=== PATIENT | female | born 1980 | race Caucasian/White ===

== ENCOUNTER 2016-12-09 10:43 | Emergency (ER) | payer BC ==
[2016-12-09] MEDS ORDERED: HYDROmorphone 1 MG/ML 1 ML SYRINGE IVP STA ×3 (11:00→16:35)
[2016-12-09] MEDS ORDERED: ONDANSETRON 4 MG/2 ML VIAL IVP STA ×2 (11:00→14:59)
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
--- NOTE | 2016-12-09 12:38 | XR ---
EXAMINATION TYPE: XR ankle complete RT , 3 VIEWS DATE OF EXAM ORDERED: 12/09/2016 HISTORY: Pain. COMPARISON: None. FINDINGS: There appears to be disruption of the talocalcaneal joint. I suspect that this is chronic. No definite acute fracture is seen. There is moderate soft tissue swelling medially. No definite ank le joint effusion is seen. There is a small Achilles spur. IMPRESSION: DISRUPTION OF THE TALOCALCANEAL JOINT. I SUSPECT THIS IS CHRONIC. PLEASE CORRELATE CLINICALLY.
--- NOTE | 2016-12-09 12:39 | XR ---
EXAMINATION TYPE: XR tibia fibula RT , 2 VIEWS DATE OF EXAM ORDERED: 12/09/2016 HISTORY: Pain. COMPARISON: None. FINDINGS: No fracture or dislocation is seen. No knee joint effusion is seen. There is evidence of o steoarthritis within the knee joint. IMPRESSION: NO ACUTE OSSEOUS LESION.
[2016-12-09 12:41] VITALS: TEMP 97.9
--- NOTE | 2016-12-09 12:43 | XR ---
EXAMINATION TYPE: XR foot limited RT , 2 VIEWS DATE OF EXAM ORDERED: 12/09/2016 HISTORY: Pain. COMPARISON: None. FINDINGS: There is a disruption of the forefoot with disruption of the tail of calcaneal joint as we ll as the talonavicular joint. There is associated soft tissue swelling.. There is a fracture through the base of the fifth metatarsal which is nondisplaced. A definite Lisfranc injury is not visualized . IMPRESSION: 1. DISRUPTION OF THE TALONAVICULAR JOINT. 2. DISRUPTION OF THE TALOCALCANEAL JOINT. 3. UNDISPLACED FRACTURE OF THE BASE OF THE FIFTH METATARSAL.
--- NOTE | 2016-12-09 12:47 | XR ---
EXAMINATION TYPE: XR wrist complete LT , 4 VIEWS DATE OF EXAM ORDERED: 12/09/2016 HISTORY: Pain. COMPARISON: None. FINDINGS: There is a cholecystitis type fracture of the distal left radius and ulna. There is minima l displacement and mild posterior angulation. IMPRESSION: CONUS TYPE FRACTURE OF THE DISTAL RADIUS AND ULNA. CODE A: INITIAL ASSESSMENT FOR CLOSED FRACTURE.
--- NOTE | 2016-12-09 12:48 | XR ---
EXAMINATION TYPE: XR forearm LT , 2 VIEWS DATE OF EXAM ORDERED: 12/09/2016 HISTORY: Pain. COMPARISON: None. FINDINGS: Once again, a fracture of the distal radius and ulna are again identified. No other long b one fracture is seen. IMPRESSION: CHOLECYSTITIS FRACTURE OF THE DISTAL LEFT RADIUS AND ULNA. CODE A: INITIAL ASSESSMENT FOR CLOSED FRACTURE
[2016-12-09] MEDS ORDERED: ETOMIDATE 2 MG/ML 10 ML VIAL IVP STA (13:03)
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
[2016-12-09 15:38] VITALS: RESP 20
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
[2016-12-09 17:43] VITALS: BP 155/65; PULSE 85
== END 2016-12-09 18:00 | disposition short-term general hospital (02) ==
LOC: EC 10:43
DX: S82.891A Other fracture of right lower leg, initial encounter for closed fracture (principal); S52.502A Unspecified fracture of the lower end of left radius, initial encounter for closed fracture; F17.200 Nicotine dependence, unspecified, uncomplicated; Z88.6 Allergy status to analgesic agent; Z79.899 Other long term (current) drug therapy; V43.62XA Car passenger injured in collision with other type car in traffic accident, initial encounter; Y92.410 Unspecified street and highway as the place of occurrence of the external cause
CPT/HCPCS: 99285 ×2; 27810 ×2; 99152 ×2; 99153 ×2; 29125 ×2; 96374 ×2; 96376 ×2; 96375 ×2; 73090; 73110; 73590; 73600; 73610; 73620; 73700; L4350; J2405; J1170

== ENCOUNTER 2020-09-18 00:32 | Emergency (ER) | payer OTHER ==
[2020-09-18 00:53] VITALS: BP 163/84; PULSE 71; RESP 20; TEMP 98.2
[2020-09-18] MEDS ORDERED: ORPHENADRINE 30 MG/ML 2 ML VIAL IM STA (01:05)
--- NOTE | 2020-09-18 01:07 | ED ---
Back Pain HPI - General Chief Complaint: Back Pain/Injury Stated Complaint: Back & Side Pain Time Seen by Provider: 09/18/20 00:56 Source: patient Limitations: no limitations - History of Present Illness MD Complaint: back pain, back injury Onset/Timin -: week(s) Similar Symptoms Previously: No Place: home Radiation: right leg Severity: severe Quality: burning, aching Consistency: constant Improves With: none Worsens With: movement Context: fall Associated Symptoms: denies other symptoms Treatments Prior to Arrival: NSAIDS - Related Data Home Medications Medication Instructions Recorded Confirmed Ibuprofen [Motrin] 800 mg PO TID PRN 12/09/16 12/09/16 Menthol [Icy Hot] 1 patch TRANSDERM DAILY PRN 12/09/16 12/09/16 Multivitamins, Thera [Multivitamin 1 tab PO DAILY 12/09/16 12/09/16 (formulary)] Previous Rx's Medication Instructions Recorded Methocarbamol [Robaxin-750] 750 mg PO TID PRN #30 tablet 09/18/20 predniSONE 60 mg PO DAILY #30 tab 09/18/20 Allergies Allergy/AdvReac Type Severity Reaction Status Date / Time acetaminophen AdvReac Unknown Verified 09/18/20 00:53 Review of Systems ROS Statement: Those systems with pertinent positive or pertinent negative responses have been documented in the HPI. ROS Other: All systems not noted in ROS Statement are negative. Constitutional: Denies: fever, chills, weakness Respiratory: Denies: cough, dyspnea Cardiovascular: Denies: chest pain, edema Gastrointestinal: Denies: abdominal pain, vomiting, diarrhea Genitourinary: Denies: dysuria, frequency, hematuria Musculoskeletal: Reports: as per HPI, back pain Skin: Denies: rash, lesions Neurological: Denies: headache, weakness, numbness, paresthesias Past Medical History Past Medical History: Liver Disease Additional Past Medical History / Comment(s): PCOS History of Any Multi-Drug Resistant Organisms: None Reported Past Surgical History: Orthopedic Surgery Additional Past Surgical History / Comment(s): rt foot,lt hand Past Anesthesia/Blood Transfusion Reactions: No Reported Reaction Past Psychological History: No Psychological Hx Reported Smoking Status: Never smoker Past Alcohol Use History: Occasional Past Drug Use History: None Reported General Exam Limitations: no limitations Course Vital Signs 09/18/20 00:50 Temperature 98.2 F Pulse Rate 71 Respiratory 20 Rate Blood Pressure 163/84 O2 Sat by Pulse 99 Oximetry Disposition Clinical Impression: Lumbar radiculopathy Disposition: HOME SELF-CARE Condition: Good Instructions (If sedation given, give patient instructions): Lumbar Radiculopathy (ED) Prescriptions: predniSONE 60 mg PO DAILY #30 tab Methocarbamol [Robaxin-750] 750 mg PO TID PRN #30 tablet PRN Reason: pain Is patient prescribed a controlled substance at d/c from ED?: No Referrals: Zabrina Salcido DO [Primary Care Provider] - 1-2 days
--- NOTE | 2020-09-18 02:03 | CT ---
EXAMINATION TYPE: CT lumbar spine wo con DATE OF EXAM: 09/18/2020 COMPARISON: None HISTORY: Fall with lower back pain. CT DLP: 2504.4 mGycm Automated exposure control for dose reduction was used. Images obtained from the level of T11 to the S to vertebra with no contrast. Lumbar vertebra have normal alignment. Disc spaces are fairly normal. There is no compression fractur e. Posterior elements are intact. Facet joints are intact. There is some mild anterior spurring at L5 -S1. There is no lumbar paraspinal mass. The sacroiliac joints are intact. I see no focal bone destru ction. IMPRESSION: Negative CT scan of the lumbar spine. No evidence of traumatic injury. No fracture.
[2020-09-18] MEDS ORDERED: MORPHINE SULFATE 4 MG/ML SYRINGE IM STA (02:19)
[2020-09-18] MEDS ORDERED: predniSONE 20 MG TAB PO STA (02:21)
== END 2020-09-18 02:57 | disposition home or self-care (01) ==
LOC: SUPCPDRO 00:32 → EC 00:32
DX: M54.16 Radiculopathy, lumbar region (principal)
CPT/HCPCS: 72131; 99283; 96372 ×2; J2270; J2360; J7512

== ENCOUNTER → 2021-12-05 | Outpatient (CLI) | payer OTHER ==
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
== END | disposition home or self-care (01) ==
LOC: RADXRMAIN 10:31
PROVIDERS: ATTEND Family Medicine
DX: M19.071 Primary osteoarthritis, right ankle and foot (principal); M85.871 Other specified disorders of bone density and structure, right ankle and foot

== ENCOUNTER 2022-01-05 09:26 | Emergency (ER) | payer OTHER ==
[2022-01-05 09:35] VITALS: BP 178/82; PULSE 95; RESP 20; TEMP 98.4
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
== END 2022-01-05 10:24 | disposition home or self-care (01) ==
LOC: EC 09:26
DX: K02.9 Dental caries, unspecified (principal); J45.909 Unspecified asthma, uncomplicated; F41.9 Anxiety disorder, unspecified; Z88.6 Allergy status to analgesic agent; Z79.899 Other long term (current) drug therapy
CPT/HCPCS: 99282

== ENCOUNTER → 2023-11-28 | Outpatient (CLI) | payer OTHER ==
[2023-11-28 19:42] LABS: Basophils # (A) 0.02 X 10*3/uL (0.00-0.10); Basophils % (A) 0.4 %; Eosinophils # (A) 0.14 X 10*3/uL (0.04-0.35); Eosinophils % (A) 2.5 %; HCT 39.9 % (37.2-46.3); HGB 13.2 g/dL (12.0-15.0); Lymphocytes # (A) 2.04 X 10*3/uL (0.90-5.00); Lymphocytes % (A) 35.8 %; MCH 29.3 pg (27.0-32.0); MCHC 33.1 g/dL (32.0-37.0); MCV 88.5 FL (80.0-97.0); Mean Platelet Volume 11.7 FL (9.5-12.2); Monocytes # (A) 0.46 X 10*3/uL (0.20-1.00); Monocytes % (A) 8.1 %; NRBC Per 100 WBC 0 X 10*3/uL (0.00-0.01); Neutrophils # (A) 3.02 X 10*3/uL (1.80-7.70); Neutrophils % (A) 52.8 %; Platelet Count 297 X 10*3/uL (140-440); RBC 4.51 X 10*6/uL (4.10-5.20)
[2023-11-28 19:54] LABS: Erythrocyte Sedimentation Rate 11 mm/Hr (0-20)
[2023-11-28 23:38] LABS: ALT 62 U/L (8-44); AST 50 U/L (13-35); Albumin 4.5 g/dL (3.8-4.9); Albumin/Globulin Ratio 1.88 Ratio (1.60-3.17); Alkaline Phosphatase 68 U/L (41-126); BUN/Creat Ratio 14.57 Ratio (12.00-20.00); Blood Urea Nitrogen 10.2 mg/dL (9.0-27.0); Calcium 9.2 mg/dL (8.7-10.3); Carbon Dioxide 20.6 mmol/L (21.6-31.8); Chloride 106 mmol/L (96-109); Chol/HDL Ratio 4.34 Ratio; Globulin 2.4 g/dL (1.6-3.3); Glucose 104 mg/dL (70-110); Iron 58 UG/DL (50-170); LDL Cholesterol,Calculated 112.4 mg/dL (0.0-131.0); Potassium 4.2 mmol/L (3.5-5.5); Rheumatoid Factor, Qnt 27 IU/mL (0-15); Sodium 138 mmol/L (135-145); T4, Free (Free Thyroxine) 0.98 ng/dL (0.80-1.80); Total Bilirubin 0.4 mg/dL (0.3-1.2); Total Protein 6.9 g/dL (6.2-8.2); Uric Acid 5.6 mg/dL (2.9-7.7)
[2023-12-06 11:00] LABS: ANA Pattern Speckled
== END | disposition home or self-care (01) ==
LOC: LABWHC1 13:23
PROVIDERS: ATTEND Family Medicine
DX: Z00.00 Encounter for general adult medical examination without abnormal findings (principal); Z13.89 Encounter for screening for other disorder; M25.571 Pain in right ankle and joints of right foot; R20.2 Paresthesia of skin; R53.83 Other fatigue
CPT/HCPCS: 36415; 80053; 80061; 82306; 82607; 82746; 83036; 83540; 84436; 84439; 84443; 84550; 85025; 85652; 86038; 86039; 86431

== ENCOUNTER 2024-04-22 21:10 | Emergency (ER) | payer OTHER ==
[2024-04-22 21:21] VITALS: BP 166/112; PULSE 79; RESP 18; TEMP 97.8
[2024-04-22 22:46] LABS: Appearance,Urine Turbid (Clear); Bacteria,Urine Moderate /hpf; Bilirubin,Urine Negative (Negative); Blood,Urine Large (Negative); Color,Urine Yellow; Glucose,Urine (UA) Negative (Negative); Ketones,Urine Negative (Negative); Leukocyte Esterase,Urine Large (Negative); Mucus,Urine Few /hpf; Nitrite,Urine Negative (Negative); Protein,Urine 1+ (Negative); RBC,Urine 92 /hpf (0-5); Specific Gravity,Urine 1.024 (1.001-1.035); Squamous Epithelial Cell,Urine 19 /hpf (0-4); Urobilinogen,Urine <2.0 mg/dL (<2.0); WBC,Urine >182 /hpf (0-5)
== END 2024-04-22 22:49 | disposition left against medical advice (07) ==
LOC: EC 21:10
DX: R10.9 Unspecified abdominal pain (principal); Z53.21 Procedure and treatment not carried out due to patient leaving prior to being seen by health care provider
CPT/HCPCS: 81001; 81025; 87086; 99499

== ENCOUNTER 2024-08-05 14:44 | Emergency (ER) | payer BC ==
[2024-08-05 16:03] LABS: Basophils # (A) 0.02 10*3/uL (0.00-0.10); Basophils % (A) 0.3 %; Eosinophils # (A) 0.21 10*3/uL (0.04-0.35); Eosinophils % (A) 3.1 %; HCT 38.9 % (37.2-46.3); HGB 13.1 g/dL (12.0-15.0); Lymphocytes # (A) 2.25 10*3/uL (0.90-5.00); Lymphocytes % (A) 33.6 %; MCH 29.4 pg (27.0-32.0); MCHC 33.7 g/dL (32.0-37.0); MCV 87.2 fL (80.0-97.0); Mean Platelet Volume 11.2 fL (9.5-12.2); Monocytes # (A) 0.59 10*3/uL (0.20-1.00); Monocytes % (A) 8.8 %; Neutrophils % (A) 53.9 %; Platelet Count 282 10*3/uL (140-440); RBC 4.46 10*6/uL (4.10-5.20); RDW 12.9 % (11.5-14.5); WBC 6.69 10*3/uL (4.50-10.00)
[2024-08-05] MEDS: ONDANSETRON 4 MG/2 ML VIAL IVP STA (16:05)
[2024-08-05] MEDS: KETOROLAC 15 MG/ML 1 ML VIAL IVP STA (16:05)
[2024-08-05] MEDS: SODIUM CHLORIDE 0.9% 1,000 ML IV ONE (16:06)
[2024-08-05 16:15] LABS: ALT 74 U/L (4-34); AST 51 U/L (14-36); African American GFR (CKD) >90 (>60 ml/min/1.73 sqM); Albumin 4.4 g/dL (3.5-5.0); Alkaline Phosphatase 74 U/L (38-126); Amylase 36 U/L (30-110); Anion Gap 8 mmol/L; Blood Urea Nitrogen 10 mg/dL (7-17); Calcium 9.3 mg/dL (8.4-10.2); Carbon Dioxide 27 mmol/L (22-30); Chloride 103 mmol/L (98-107); Glucose 112 mg/dL (74-99); Lipase 70 U/L (23-300); Non-African American GFR(CKD) >90 (>60 ml/min/1.73 sqM); Potassium 3.9 mmol/L (3.5-5.1); Sodium 138 mmol/L (137-145); Total Bilirubin 0.7 mg/dL (0.2-1.3)
--- NOTE | 2024-08-05 16:34 | ED ---
Abdominal Pain HPI - General Chief Complaint: Abdominal Pain Stated Complaint: Urogenital,L sided abd pain Source: patient, RN notes reviewed, old records reviewed Mode of arrival: ambulatory Limitations: no limitations - History of Present Illness Initial Comments: This is a 44-year-old female to the ER for evaluation today. Patient presents to the ER today for evaluation regards to abdominal pain left side abdominal pain left-sided flank pain left epigastric abdominal pain and left lower quadrant abdominal pain. Patient has had symptoms for months. Patient has no travel history or sick contacts. No fevers no nausea no vomiting no diarrhea. No history of colonoscopy recent ultrasound of gallbladder is negative MD Complaint: abdominal pain -: days(s) Location: diffuse, LLQ, L flank Radiation: LUQ, LLQ, L flank Migration to: LUQ, LLQ Severity: moderate Severity scale (1-10): 4 Quality: aching Consistency: intermittent Improves With: nothing Worsens With: nothing Associated Symptoms: denies other symptoms, other Treatments Prior to Arrival: other - Related Data Home Medications Medication Instructions Recorded Confirmed Ibuprofen [Motrin] 800 mg PO TID PRN 12/09/16 12/09/16 Menthol [Icy Hot] 1 patch TRANSDERM DAILY PRN 12/09/16 12/09/16 Multivitamins, Thera [Multivitamin 1 tab PO DAILY 12/09/16 12/09/16 (formulary)] Previous Rx's Medication Instructions Recorded methocarbamoL [Robaxin-750] 750 mg PO TID PRN #30 tablet 09/18/20 predniSONE 60 mg PO DAILY #30 tab 09/18/20 clindamycin HCL 300 mg PO QID #40 cap 01/05/22 traMADol HCl [Ultram] 50 mg PO Q6H PRN #12 tab 01/05/22 Allergies Allergy/AdvReac Type Severity Reaction Status Date / Time acetaminophen AdvReac Unknown Verified 08/05/24 14:49 Review of Systems ROS Statement: Those systems with pertinent positive or pertinent negative responses have been documented in the HPI. ROS Other: All systems not noted in ROS Statement are negative. Past Medical History Past Medical History: Asthma, Liver Disease Additional Past Medical History / Comment(s): PCOS History of Any Multi-Drug Resistant Organisms: None Reported Past Surgical History: Orthopedic Surgery Additional Past Surgical History / Comment(s): rt foot,lt hand Past Anesthesia/Blood Transfusion Reactions: No Reported Reaction Past Psychological History: Anxiety, Depression Smoking Status: Never smoker Past Alcohol Use History: Occasional Past Drug Use History: None Reported General Exam Limitations: no limitations General appearance: alert, in no apparent distress, obese Head exam: Present: atraumatic, normocephalic, normal inspection Eye exam: Present: normal appearance, PERRL, EOMI. Absent: scleral icterus, conjunctival injection, periorbital swelling ENT exam: Present: normal exam, mucous membranes moist Neck exam: Present: normal inspection. Absent: tenderness, meningismus, lymphadenopathy Respiratory exam: Present: normal lung sounds bilaterally. Absent: respiratory distress, wheezes, rales, rhonchi, stridor Cardiovascular Exam: Present: regular rate, normal rhythm, normal heart sounds. Absent: systolic murmur, diastolic murmur, rubs, gallop, clicks GI/Abdominal exam: Present: soft, normal bowel sounds. Absent: distended, tenderness, guarding, rebound, rigid Extremities exam: Present: normal inspection, full ROM, normal capillary refill. Absent: tenderness, pedal edema, joint swelling, calf tenderness Back exam: Present: normal inspection Neurological exam: Present: alert, oriented X3, CN II-XII intact Psychiatric exam: Present: normal affect, normal mood Skin exam: Present: warm, dry, intact, normal color. Absent: rash Course Vital Signs 08/05/24 08/05/24 08/05/24 14:45 16:56 18:43 Temperature 97.7 F 98.5 F Pulse Rate 92 78 75 Respiratory 16 18 18 Rate Blood Pressure 156/90 132/79 113/67 O2 Sat by Pulse 98 99 99 Oximetry - Reevaluation(s) Reevaluation #1: 08/05/24 16:33 Medical record is reviewed Reevaluation #2: 08/05/24 17:34 Patient's symptoms improved here in the ER Reevaluation #3: 08/05/24 17:34 Patient informed of results and questions answered Reevaluation #4: Was pt. sent in by a medical professional or institution (, PA, CREDIT ADJUSTER, urgent care, hospital, or [facility]...) When possible be specific @ -no Did you speak to anyone other than the patient for history (EMS, parent, family, police, friend...)? What history was obtained from this source @ -no Did you review nursing and triage notes (agree or disagree)? Why? @ -agree Are old charts reviewed (outside hosp., previous admission, EMS record, old EKG, old radiological studies, urgent care reports/EKG's, [facility] records)? Report findings @ -yes Differential Diagnosis (chest pain, altered mental status, abdominal pain women, abdominal pain men, vaginal bleeding, weakness, fever, dyspnea, syncope, headache, dizziness, GI bleed, back pain, seizure, CVA, palpatations, mental health, musculoskeletal)? @ -prior EKG interpreted by me (3pts min.). @ -no X-rays interpreted by me (1pt min.). @ -no CT interpreted by me (1pt min.). @ -yes negative for acute disease U/S interpreted by me (1pt. min.). @ -no What testing was considered but not performed or refused? (CT, X-rays, U/S, labs)? Why? @ -none What meds were considered but not given or refused? Why? @ -none Did you discuss the management of the patient with other professionals (professionals i.e. , PA, CREDIT ADJUSTER, lab, RT, psych nurse, aids social worker, personnel representative, teacher, air crew officer, case management director)? Give summary @ -no Was smoking cessation discussed for >3mins.? @ -no Was critical care preformed (if so, how long)? @ -no Were there social determinants of health that impacted care today? How? (Homeles sness, low income, unemployed, alcoholism, drug addiction, transportation, low edu. Level, literacy, decrease access to med. care, skilled nursing, rehab)? @ -none Was there de-escalation of care discussed even if they declined (Discuss DNR or withdrawal of care, Hospice)? DNR status @ -no What co-morbidities impacted this encounter? (DM, HTN, Smoking, COPD, CAD, Cancer, CVA, ARF, Chemo, Hep., AIDS, mental health diagnosis, sleep apnea, morbid obesity)? @ -none Was patient admitted / discharged? Hospital course, mention meds given and route, prescriptions, significant lab abnormalities, going to OR and other pertinent info. @ - 44 female to the ER for evaluation abdominal pain acute on chronic abdo joaquin pain pain for a month or some sort, patient will follow-up with GI and can be discharged home Discharge Undiagnosed new problem with uncertain prognosis? @ -no Drug Therapy requiring intensive monitoring for toxicity (Heparin, Nitro, Insulin, Cardizem)? @ -no Were any procedures done? @ -no Diagnosis/symptom? @ -Acute on chronic abdominal pain Acute, or Chronic, or Acute on Chronic? @ -Acute Uncomplicated (without systemic symptoms) or Complicated (systemic symptoms)? @ -Complicated Side effects of treatment? @ -no Exacerbation, Progression, or Severe Exacerbation? @ -exacerbation Poses a threat to life or bodily function? How? (Chest pain, USA, CA, pneumonia, PE, COPD, DKA, ARF, appy, cholecystitis, CVA, Diverticulitis, Homicidal, Suicidal, threat to staff... and all critical care pts) @ -no Reevaluation #5: Differential Abdominal Pain Women: Appendicitis, Cholecystitis, diverticulosis, ischemic bowel, pancreatitis, hepatitis, UTI, gastroenteritis, AAA, incarcerated hernia, bowel obstruction, constipation, inflammatory bowel, hepatitis, peptic ulcer disease, splenic infarction, perforated viscus, vulvitis, ovarian torsion, PID, kidney stone, placenta abruption, this is not meant to be an all-inclusive list Medical Decision Making - Medical Decision Making 44 female to the ER for evaluation abdominal pain acute on chronic abdominal pain pain for a month or some sort, patient will follow-up with GI and can be discharged home - Lab Data Result diagrams: 08/05/24 15:27 08/05/24 15:27 Lab Results 08/05/24 08/05/24 08/05/24 Range/Units 15:27 15:27 15:27 WBC 6.69 (4.50-10.00) 10*3/uL RBC 4.46 (4.10-5.20) 10*6/uL Hgb 13.1 (12.0-15.0) g/dL Hct 38.9 (37.2-46.3) % MCV 87.2 (80.0-97.0) fL MCH 29.4 (27.0-32.0) pg MCHC 33.7 (32.0-37.0) g/dL Plt Count 282 (140-440) 10*3/uL MPV 11.2 (9.5-12.2) fL Immature Gran % (Auto) 0.3 % Neutrophils % 53.9 % Lymphocytes % 33.6 % Monocytes % 8.8 % Eosinophils % 3.1 % Basophils % 0.3 % Immature Gran # 0.02 (0.00-0.04) 10*3/uL Neutrophils # 3.60 (1.80-7.70) 10*3/uL Lymphocytes # 2.25 (0.90-5.00) 10*3/uL Monocytes # 0.59 (0.20-1.00) 10*3/uL Eosinophils # 0.21 (0.04-0.35) 10*3/uL Basophils # 0.02 (0.00-0.10) 10*3/uL PT (10.0-12.5) sec INR (<1.2) APTT (22.0-30.0) sec Sodium 138 (137-145) mmol/L Potassium 3.9 (3.5-5.1) mmol/L Chloride 103 (98-107) mmol/L Carbon Dioxide 27 (22-30) mmol/L Anion Gap 8 mmol/L BUN 10 (7-17) mg/dL Creatinine 0.62 (0.52-1.04) mg/dL Est GFR (CKD-EPI)AfAm >90 (>60 ml/min/1.73 sqM) Est GFR (CKD-EPI)NonAf >90 (>60 ml/min/1.73 sqM) Glucose 112 H (74-99) mg/dL Plasma Lactic Acid Micah 1.7 (0.7-2.0) mmol/L Calcium 9.3 (8.4-10.2) mg/dL Total Bilirubin 0.7 (0.2-1.3) mg/dL AST 51 H (14-36) U/L ALT 74 H (4-34) U/L Alkaline Phosphatase 74 (38-126) U/L Total Protein 7.0 (6.3-8.2) g/dL Albumin 4.4 (3.5-5.0) g/dL Amylase 36 (30-110) U/L Lipase 70 (23-300) U/L Urine Color Urine Appearance (Clear) Urine pH (5.0-8.0) Ur Specific [place] (1.001-1.035) Urine Protein (Negative) Urine Glucose (UA) (Negative) Urine Ketones (Negative) Urine Blood (Negative) Urine Nitrite (Negative) Urine Bilirubin (Negative) Urine Urobilinogen (<2.0) mg/dL Ur Leukocyte Esterase (Negative) Urine RBC (0-5) /hpf Urine WBC (0-5) /hpf Ur Squamous Epith Cells (0-4) /hpf Urine Bacteria (None) /hpf Urine Mucus (None) /hpf Urine HCG, Qual (Not Detectd) 08/05/24 08/05/24 08/05/24 Range/Units 16:14 17:27 17:27 WBC (4.50-10.00) 10*3/uL RBC (4.10-5.20) 10*6/uL Hgb (12.0-15.0) g/dL Hct (37.2-46.3) % MCV (80.0-97.0) fL MCH (27.0-32.0) pg MCHC (32.0-37.0) g/dL Plt Count (140-440) 10*3/uL MPV (9.5-12.2) fL Immature Gran % (Auto) % Neutrophils % % Lymphocytes % % Monocytes % % Eosinophils % % Basophils % % Immature Gran # (0.00-0.04) 10*3/uL Neutrophils # (1.80-7.70) 10*3/uL Lymphocytes # (0.90-5.00) 10*3/uL Monocytes # (0.20-1.00) 10*3/uL Eosinophils # (0.04-0.35) 10*3/uL Basophils # (0.00-0.10) 10*3/uL PT 10.8 (10.0-12.5) sec INR 1.0 (<1.2) APTT 24.0 (22.0-30.0) sec Sodium (137-145) mmol/L Potassium (3.5-5.1) mmol/L Chloride (98-107) mmol/L Carbon Dioxide (22-30) mmol/L Anion Gap mmol/L BUN (7-17) mg/dL Creatinine (0.52-1.04) mg/dL Est GFR (CKD-EPI)AfAm (>60 ml/min/1.73 sqM) Est GFR (CKD-EPI)NonAf (>60 ml/min/1.73 sqM) Glucose (74-99) mg/dL Plasma Lactic Acid Micah (0.7-2.0) mmol/L Calcium (8.4-10.2) mg/dL Total Bilirubin (0.2-1.3) mg/dL AST (14-36) U/L ALT (4-34) U/L Alkaline Phosphatase (38-126) U/L Total Protein (6.3-8.2) g/dL Albumin (3.5-5.0) g/dL Amylase (30-110) U/L Lipase (23-300) U/L Urine Color Colorless Urine Appearance Clear (Clear) Urine pH 6.5 (5.0-8.0) Ur Specific [place] 1.029 (1.001-1.035) Urine Protein Negative (Negative) Urine Glucose (UA) Negative (Negative) Urine Ketones Negative (Negative) Urine Blood Small H (Negative) Urine Nitrite Negative (Negative) Urine Bilirubin Negative (Negative) Urine Urobilinogen <2.0 (<2.0) mg/dL Ur Leukocyte Esterase Negative (Negative) Urine RBC 2 (0-5) /hpf Urine WBC 2 (0-5) /hpf Ur Squamous Epith Cells 1 (0-4) /hpf Urine Bacteria Occasional H (None) /hpf Urine Mucus Rare H (None) /hpf Urine HCG, Qual Not Detected (Not Detectd) - Radiology Data Radiology results: report reviewed (CT abdomen pelvis is negative for acute disease), image reviewed Disposition Clinical Impression: Abdominal pain Disposition: HOME SELF-CARE Condition: Fair Instructions (If sedation given, give patient instructions): Abdominal Pain (ED) Is patient prescribed a controlled substance at d/c from ED?: No Referrals: Alexander Salcido DO [Primary Care Provider] - 1-2 days Camila Berg MD [STAFF PHYSICIAN] - 1-2 days
[2024-08-05 16:37] LABS: Prothrombin Time 10.8 sec (10.0-12.5)
[2024-08-05 17:02] VITALS: RESP 18
--- NOTE | 2024-08-05 17:20 | CT ---
EXAMINATION TYPE: CT abdomen pelvis w con DATE OF EXAM: 08/05/2024 4:52 PM COMPARISON: None. CLINICAL INDICATION: Female, 44 years old with history of pain, left side abdominal pain x 2 months TECHNIQUE: Axial images were obtained from above the diaphragm to the pubic rami in the axial plane a t 5 mm thick sections. Reconstructed images are reviewed on the computer in the coronal plane. CONTRAST: 100 cc mL of Isovue 300. Study performed without Oral Contrast DLP: 4349 mGycm, Automated exposure control for dose reduction was used. FINDINGS: Limited CT sections are obtained the lung bases. The lung bases are clear. CT ABDOMEN: Liver: Normal Spleen: Normal Pancreas: Normal Adrenal glands: The adrenal glands are normal. Gallbladder: Normal Kidneys: No masses are evident. No hydronephrosis is present. No cysts are present. There is a non obstructing punctate renal stones in the mid and inferior right kidney. Aorta: Normal Inferior vena cava: Normal. CT PELVIS: Loops of bowel within the abdomen and pelvis are normal. There are loops of bowel which are incom pletely distended or lack oral contrast limiting their evaluation. Appendix: Normal as visualized. Air-filled in the midline. Urinary bladder: Normal. Genitourinary structures: Uterus is normal. Adnexa are unremarkable Osseous structures: No suspicious lytic or sclerotic lesions. Vacuum joint space phenomenons in the s acroiliac joints. IMPRESSION: 1. Couple of punctate nonobstructing renal stones mid and inferior pole right kidney. No suspicious abnormality to account for left flank pain [facility], , 08/05/2024 5:17 PM
[2024-08-05 17:47] LABS: Appearance,Urine Clear (Clear); Bacteria,Urine Occasional /hpf; Bilirubin,Urine Negative (Negative); Blood,Urine Small (Negative); Color,Urine Colorless; Glucose,Urine (UA) Negative (Negative); Ketones,Urine Negative (Negative); Leukocyte Esterase,Urine Negative (Negative); Mucus,Urine Rare /hpf; Nitrite,Urine Negative (Negative); PH, Urine 6.5 (5.0-8.0); Protein,Urine Negative (Negative); RBC,Urine 2 /hpf (0-5); Specific Gravity,Urine 1.029 (1.001-1.035); Squamous Epithelial Cell,Urine 1 /hpf (0-4); Urobilinogen,Urine <2.0 mg/dL (<2.0); WBC,Urine 2 /hpf (0-5)
[2024-08-05 18:56] VITALS: BP 113/67; PULSE 75; TEMP 98.5
== END 2024-08-05 18:56 | disposition home or self-care (01) ==
LOC: EC 14:44
DX: R10.13 Epigastric pain (principal); Z88.8 Allergy status to other drugs, medicaments and biological substances
CPT/HCPCS: 36415; 80053; 82150; 83605; 83690; 85025; 85610; 85730; 81001; 81025; 74177; 99284; 96374; 96375; 96361; J2405; J1885; Q9967